=== PATIENT | male | born 1945 | race Caucasian/White ===

== ENCOUNTER 2020-05-17 07:31 | Outpatient (CLI) | payer MEDICARE, OTHER | END 2020-05-17 23:59 | disposition home or self-care (01) | LOC: LAB 07:31 | PROVIDERS: ATTEND Surgery | DX: Z01.812 Encounter for preprocedural laboratory examination (principal); Z11.59 Encounter for screening for other viral diseases ==

== ENCOUNTER 2020-05-21 07:12 | Day surgery (SDC) | payer MEDICARE, OTHER ==
[2020-05-21] MEDS ORDERED: SEVOFLURANE 250 ML BOTTLE IH ONE (07:13)
[2020-05-21] MEDS ORDERED: PROPOFOL 200 MG/20 ML BOTTLE IV ONE (07:13)
[2020-05-21] MEDS ORDERED: SUCCINYLCHOLINE CHLORIDE 200 MG/10 ML VIAL IV ONE (07:13)
[2020-05-21] MEDS ORDERED: LIDOCAINE-MPF 2% 5 ML VIAL IJ ONE (07:13)
[2020-05-21] MEDS ORDERED: ONDANSETRON 4 MG/2 ML VIAL IV ONE (07:13)
[2020-05-21] MEDS ORDERED: DEXAMETHASONE SOD PHOSPHATE 4 MG INJ IV ONE (07:13)
[2020-05-21] MEDS ORDERED: CEFAZOLIN 1 G VIAL IM ONE (07:13)
[2020-05-21] MEDS ORDERED: BUPIVACAINE PF 0.5% 30 ML VIAL ONE (07:27)
[2020-05-21] MEDS ORDERED: LIDOCAINE 1%-EPI 1:100,000 20 ML VIAL ONE (07:27)
[2020-05-21] MEDS ORDERED: LIDOCAINE HCL 1% 20 ML VIAL ONE (07:28)
[2020-05-21] MEDS ORDERED: BACITRACIN/POLYMYXIN B OINT 15 GM TUBE ONE (07:29)
[2020-05-21 08:00] LABS: *BILIRUBIN,URIN NEGATIVE (NEGATIVE); *CLARITY,URINE CLEAR (CLEAR); *COLOR,URINE YELLOW (YELLOW); *KETONES,URINE NEGATIVE (NEGATIVE); *UROBILINOGEN,URINE 0.2 E.U./dl (NORMAL); LEUKOCYTE ESTERASE ,URINE NEGATIVE (NEGATIVE); NITRITE, URINE NEGATIVE (NEGATIVE); PH,URINE 5.5 (5.0-8.0); UGLUCOSE NEGATIVE (NEGATIVE)
[2020-05-21 08:12] LABS: *BLOOD, URINE TRACE (NEGATIVE)
[2020-05-21] MEDS ORDERED: FENTANYL CITRATE 100 MCG/2 ML AMPUL ONE (10:03)
[2020-05-21] MEDS ORDERED: ACETAMINOPHEN 325 MG TABLET PO ONE (10:15)
[2020-05-21] MEDS ORDERED: IBUPROFEN 400 MG TABLET PO ONE (10:15)
[2020-05-21] MEDS ORDERED: GABAPENTIN 300 MG CAPSULE PO ONE (10:15)
[2020-05-21] MEDS ORDERED: ACETAMINOPHEN 325 MG TABLET ONE (11:19)
[2020-05-21 13:02] LABS: BACTERIA,URINE FEW /HPF (NONE SEEN); RBC,URINE 0-3 /HPF (0-3); SQUAMOUS EPITHELIAL CELL,UR FEW /HPF (NONE SEEN); WBC,URINE 0-3 /HPF (0-3)
== END 2020-05-21 12:10 | disposition home or self-care (01) ==
LOC: DS 07:12
PROVIDERS: ATTEND Surgery
DX: K42.0 Umbilical hernia with obstruction, without gangrene (principal); I25.10 Atherosclerotic heart disease of native coronary artery without angina pectoris; I10 Essential (primary) hypertension; J45.909 Unspecified asthma, uncomplicated; E78.5 Hyperlipidemia, unspecified; G47.30 Sleep apnea, unspecified; F41.9 Anxiety disorder, unspecified; Z79.82 Long term (current) use of aspirin; Z79.899 Other long term (current) drug therapy; Z98.890 Other specified postprocedural states
CPT/HCPCS: A4649; A4663; J0330; J0690; J1100; J2405; J3010; J3490; J7120

== ENCOUNTER 2021-07-29 06:24 | Outpatient (CLI) | payer MEDICARE, OTHER | END 2021-07-29 23:59 | disposition home or self-care (01) | LOC: LAB 06:24 | PROVIDERS: ATTEND Surgery | DX: Z01.812 Encounter for preprocedural laboratory examination (principal); Z20.822 Contact with and (suspected) exposure to COVID-19 ==

== ENCOUNTER → 2021-07-31 | Day surgery (SDC) | payer MEDICARE, OTHER ==
[~2021-07-31] MED LIST: FENTANYL CITRATE 100 MCG/2 ML AMPUL ONE; LIDOCAINE-MPF 2% 5 ML VIAL IJ ONE; PROPOFOL 200 MG/20 ML BOTTLE IV ONE
[2021-07-31 08:58] LABS: HEMATOCRIT 42.5 % (36.7-47.1); MEAN CORPUSCULAR VOLUME 88.3 fL (73.0-96.2); PLATELET COUNT (AUTO) 184 K/uL (152-348)
[2021-07-31 09:06] LABS: *BILIRUBIN,URIN NEGATIVE (NEGATIVE); *BLOOD, URINE NEGATIVE (NEGATIVE); *CLARITY,URINE CLEAR (CLEAR); *COLOR,URINE YELLOW (YELLOW); *KETONES,URINE NEGATIVE (NEGATIVE); *UROBILINOGEN,URINE 0.2 E.U./dl (NORMAL); LEUKOCYTE ESTERASE ,URINE NEGATIVE (NEGATIVE); NITRITE, URINE NEGATIVE (NEGATIVE); UGLUCOSE NEGATIVE (NEGATIVE)
[2021-07-31 09:24] LABS: CREATININE 0.9 mg/dL (0.6-1.3); POTASSIUM 3.9 mmol/L (3.5-5.1)
== END | disposition home or self-care (01) ==
LOC: DS 07:52
PROVIDERS: ATTEND Surgery
DX: Z12.11 Encounter for screening for malignant neoplasm of colon (principal); K21.9 Gastro-esophageal reflux disease without esophagitis; K57.30 Diverticulosis of large intestine without perforation or abscess without bleeding; K29.50 Unspecified chronic gastritis without bleeding; K44.9 Diaphragmatic hernia without obstruction or gangrene; K63.89 Other specified diseases of intestine; K31.89 Other diseases of stomach and duodenum; E78.00 Pure hypercholesterolemia, unspecified; E66.9 Obesity, unspecified; I10 Essential (primary) hypertension; M19.90 Unspecified osteoarthritis, unspecified site; Z86.010 Personal history of colon polyps; Z79.899 Other long term (current) drug therapy; Z98.890 Other specified postprocedural states
CPT/HCPCS: 36415; 43239; 80048; 81003; 85025; 85730; 93005; G0105; J3010; J3490; J7120; 88313-TC; 88342; A4217; A4663